=== PATIENT | female | born 1955 | race Caucasian/White ===

== ENCOUNTER → 2016-10-09 10:07 | Outpatient (CLI) | payer MEDICAID ==
[2016-08-28 12:10] VITALS: BMI 48.0
[~2016-10-09 10:07] MED LIST: ASPIRIN81 MG PO; BENICAR HCT 40-1 TAB PO; FAMOTIDINE10 MG PO; GEMFIBROZIL600 MG PO; HYDROCODON-ACE1 EAC7 PO; HYZAAR 50-12.51 TAB PO; ISOSORBIDE MONO30 M1 PO; K-DUR20 MEQ PO; KLONOPIN1 MG PO; LASIX40 MG PO; LOW DOSE ASPIRI81 M1 PO; MOBIC7.5 MG PO; OMEPRAZOLE40 MG PO; PLAVIX75 MG PO; PROZAC20 MG PO; REQUIP0.5 MG PO; VIMOVO 500-201 EACH PO; ZOFRAN ODT4 MG/UDTAB PO
== END | disposition home or self-care (01) ==
LOC: D.CT 10:07
DX: J81.1 Chronic pulmonary edema (principal)

== ENCOUNTER → 2016-10-10 16:31 | Outpatient (CLI) | payer MEDICAID ==
[2016-08-28 12:10] VITALS: BMI 48.0
== END | disposition home or self-care (01) ==
LOC: D.MAMMO 15:15
DX: Z12.31 Encounter for screening mammogram for malignant neoplasm of breast (principal)

== ENCOUNTER → 2016-12-08 13:52 | Outpatient (CLI) | payer MEDICAID ==
[2016-08-28 12:10] VITALS: BMI 48.0
== END | disposition home or self-care (01) ==
LOC: D.RAD 10-30 10:45 → D.RT 10-30 11:00 → D.RAD 12-06 10:00 → D.RT 13:52
DX: R06.09 Other forms of dyspnea (principal)

== ENCOUNTER 2017-01-09 08:26 | Outpatient (CLI) | payer MEDICAID ==
[~2017-01-09] VITALS: Ht 177.8 cm; Wt 151.4 kg
--- NOTE | ~2017-01-09 | OP ---
PATIENT NAME: RICHARD DE LEON MEDICAL RECORD: [id number] :55 LOCATION:D.[facility] ADMISSION DATE: SURGEON: DARRELL FATIMA MD DATE OF OPERATION: 01/09/2017 PROCEDURES: 1. PTCA stent LAD. 2. Left heart catheterization. 3. Selective coronary angiography. 4. Left ventriculogram. INDICATION: Angina and coronary artery disease. PROCEDURE: After informed consent was obtained and after detailed explanation of risks, benefits as well as alternative therapies, the patient elected to proceed with angiogram and angioplasty. The right femoral area was prepped and draped in normal sterile fashion. Right femoral artery was cannulated via modified Seldinger technique with placement of 6-Chinese sheath. All catheters exchanged through this sheath. FINDINGS: Left ventriculogram was performed in standard 30-degree FELICIANO view, reveals good cardiac wall motion throughout all segments. Overall ejection fraction estimated at 60%. SELECTIVE CORONARY ANGIOGRAPHY: 1. Left main showed no significant angiographic disease. 2. Left anterior descending has previously placed stents proximally. These are widely patent with no significant restenosis. There is, however 70% to 75% stenosis after this previously placed stents, this correlates with the EKG changes and new onset of chest pain. 3. Left circumflex has moderate irregularities, but no flow-limiting stenosis. 4. Right coronary has previously placed stents. These are widely patent with no significant restenosis. No disease elsewise throughout the RCA or its branches. PTCA STENT OF THE LAD: The stent used was a 3.5 x 15 mm Integrity. Result was 0% residual stenosis. OVERALL IMPRESSION: Successful percutaneous transluminal coronary angioplasty stent of the left anterior descending going from 70% to 75% initial stenosis to 0% residual. TRANSINT:[id number] Voice Confirmation ID: [id number] DOCUMENT ID: [id number] DARRELL FATIMA MD CC: [id number] DICTATION DATE: 01/09/17 1108 DISABILITY BENEFITS SPECIALIST: 01/09/17 190 [facility] CLI 01/09/17 [address] [place] [address]
--- NOTE | ~2017-01-09 | HEMODYNAMI ---
PATIENT:RICHARD DE LEON MEDICAL RECORD: [id number] : 55 LOCATION:[facility] ADMISSION DATE: 01/09/17 Generatedon:01/09/201711:08 Patient name: RICHARD DE LEON Patient #: [id number] : 1955 Date of study: 01/09/2017 Page: Of Hemodynamic Procedure Report Patient Data Patient Demographics Procedure consent was obtained First Name: RICHARD Gender: Female Last Name: MOISES : 1955 Middle Initial: CONRAD Age: 61 year(s) Patient #: [id number] Race: SSN: [id number] Additional ID: [id number] Contact details Address: [address] [place] [address] State: [place] City: [facility] Zip code: [address] Past Medical History Allergies Allergen Reaction Date Comments Reported Other allergy 08/07/2016 Atorvastatin Other allergy 01/09/2017 statins Admission Admission Data Admission Date: 01/09/2017 Admission Time: 8:26 Weight (lbs.): 343 Weight (kg.): 155.58 Lab Results Lab Result Date: 01/09/2017 Lab Result Time: 9:00 Biochemistry Name Units Result Min Max BUN mg/dl 27 --(----)-* 7 18 Creatinine mg/dl 1.4 --(----)*- 0.6 1.3 CBC Name Units Result Min Max Hematocrit % 38 *-(----)-- 42 54 Hemoglobin g/dl 13 -*(----)-- 13.5 17.5 Procedure Procedure Types Cath Procedure Diagnostic Procedure [facility] w/Coronaries PCI Procedure Coronary Stent Initial Miscellaneous Procedures Moderate Sedation up to 15 minutes Procedure Description Procedure Date Procedure Date: 01/09/2017 Procedure Start Time: 10:51 Procedure End Time: 11:04 Procedure Staff Name Function Roni Collazo MD Performing Physician Supriya Counts RT Scrub Evgeny Puente RN Nurse Speedy Gilliland RT Monitor Procedure Data Cath Procedure Fluoroscopy Diagnostic fluoroscopy Total fluoroscopy Time: 2.7 time: 2.7 min min Diagnostic fluoroscopy Total fluoroscopy dose: dose: 458.13 mGy 458.13 mGy Contrast Material Contrast Material Type Amount (ml) Isovue 300 91 Entry Location Entry Primary Successful Side Size Upsize Upsize Entry Closure Succes sful Closure Location (Fr) 1 (Fr) 2 (Fr) Remarks Device Remarks Femoral Right 5 Fr 6 Fr Exoseal artery Short Estimated blood loss: 10 ml Diagnostic catheters Device Type Used For End Catheter Placement Cordis 5Fr Pigtail Procedure Catheter (MP) Cordis 5Fr JL 4.0 Procedure Catheter (MP) Cordis 5Fr 3DRC Catheter Procedure (MP) Procedure Complications No complications Procedure Medications Medication Administration Route Dosage Oxygen NC 2 l/min Heparin Flush Bag added to field 2 bags (1000units/500ml NS) 0.9% NaCl I.V. 100 ml/hr Fentanyl I.V. 50 mcg Versed I.V. 1 mg Fentanyl I.V. 50 mcg Versed I.V. 1 mg Heparin Bolus I.V. 4000 units Fentanyl I.V. 50 mcg Hemodynamics Rest HGB: 13 (g/dl) Heart Rate: 70 (bpm) Snapshots Pre Cath Intra NCS Post Cath Vital Signs Time Heart Resp SPO2 NIBP (mmHg) Rhythm Pain Sedation Rate (ipm) (%) Status Level (bpm) 10:29:40 71 19 97 137/68(108) NSR 0 (11) 10(A) , No pain 10:34:25 69 17 95 129/64(108) NSR 0 (11) 10(A) , No pain 10:39:11 71 18 95 125/63(101) NSR 0 (11) 10(A) , No pain 10:43:54 74 20 94 145/67(99) NSR 0 (11) 10(A) , No pain 10:48:45 72 17 93 125/71(97) NSR 0 (11) 10(A) , No pain 10:53:30 73 17 95 108/60(99) NSR 0 (11) 9(A) , No pain 10:57:56 79 18 94 130/84(115) NSR 0 (11) 9(A) , No pain 11:06:10 83 18 96 142/83(108) NSR 0 (11) 9(A) , No pain Medications Time Medication Route Dose Verified Delivered Reason Notes Effectiveness by by 10:25:04 Oxygen NC 2 Evgeny Evgeny Per physician l/min Kwame Puente RN RN 10:25:14 Heparin Flush added 2 Evgeny Evgeny used for Bag to bags Kwame Puente RN procedure (1000units/500ml field RN NS) 10:25:26 0.9% NaCl I.V. 100 Evgeny Evgeny Per physician ml/hr Kwame Puente RN RN 10:49:31 Fentanyl I.V. 50 Evgeny Evgeny for sedation mcg Kwame Puente RN RN 10:49:45 Versed I.V. 1 mg Evgeny Evgeny for sedation Kwame Puente RN RN 10:52:40 Fentanyl I.V. 50 Evgeny Evgeny for sedation mcg Kwame Puente RN RN 10:52:46 Versed I.V. 1 mg Evgeny Evgeny for sedation Kwame Puente RN RN 10:57:54 Heparin Bolus I.V. 4000 Evgeny Evgeny for units Kwame Puente RN anticoagulation RN 10:58:28 Fentanyl I.V. 50 Evgeny Evgeny for sedation mcg Kwame Puente RN relay assembler Log Time Note 9:34:04 Diagnostic Cath Status : Elective 9:34:26 Plan of Care:Hemodynamics will remain stable., Cardiac rhythm will remain stable., Comfort level will be maintained., Respiratory function will remain adequate., Patient/ family verbilizes understanding of procedure., Procedure tolerated without complication., Recovers from procedure without complications.. 10:09:21 Evgeny Puente RN sent for patient. Start room use. 10:09:22 Time tracking: Regular hours 10:14:53 Patient Weight : 155.58 kg 10:16:00 Patient received from Pre/Post Procedure Room to CCL 3 Alert and oriented. Tansferred to table in Supine position. 10:16:01 Warm blankets applied, and ren hugger turned on for patient comfort. 10:16:01 Correct patient and procedure confirmed by team. 10:16:03 Signed procedure consent form obtained from patient. 10:16:04 ECG and BP/O2 sat monitors applied to patient. 10:16:15 H&P Date Dictated: 01/03/2017 Within 30 days and on chart., H&P Addendum completed by physician on day of procedure. (MUST COMPLETE FOR ALL OUTPATIENTS). 10:25:04 Oxygen 2 l/min NC was administered by Evgeny Puente RN; Per physician; 10::14 Heparin Flush Bag (1000units/500ml NS) 2 bags added to field was administered by Evgeny Puente RN; used for procedure; 10:: 0.9% NaCl 100 ml/hr I.V. was administered by Evgeny Puente RN; Per physician; 10::45 Vital chart was started 10::07 Baseline sample Acquired. 10:26:11 Rhythm: sinus rhythm 10::12 Full Disclosure recording started 10::13 Pre-procedure instructions explained to patient. 10::14 Pre-op teaching completed and patient verbalized understanding. 10::15 Family in waiting room. 10::16 Patient NPO since Midnight. 10::25 Patient allergic to Other allergystatins 10:26:27 Is the patient allergic to Iodine/contrast media? No. 10:26:36 Is patient on blood thinner?Yes 10::39 ACC The patient was administered the following blood thiners within the last 24 hours: ACCPlavix 10:26:40 Patient diabetic? No. 10:26:43 Previous problem with sedation/anesthesia? No ? 10:26:44 Snore? Yes 10:26:45 Sleep apnea? Yes 10:26:46 Deviated septum? No 10:26:47 Opens mouth fully? Yes 10:26:47 Sticks out tongue? Yes 10:26:49 Airway obstruction? No ? 10:26:53 Dentures? Yes In Tight 10:29:40 Pre procedure: right dorsailis pedis pulse 2+ Normal; easily identifiable; not easily obliterated 10:29:42 Patient pain scale 0/10 ?. 10:29:51 IV patent on arrival in left wrist with 0.9% NaCl at [facility]. 10:32:00 Lab Result : BUN 27 mg/dl 10:32:00 Lab Result : Creatinine 1.4 mg/dl 10:32:00 Lab Result : Hemoglobin 13 g/dl 10:32:00 Lab Result : Hematocrit 38 % 10:32:04 Lab results completed and on chart. 10:32:10 Right groin area was prepped with chlora-prep and draped in sterile fashion 10:32:11 Alarms reviewed by R. N. 10:32:12 Sharps counted by scrub and verified by R.N. 10:32:15 Use device set Femoral Dx 10:32:16 Tegaderm 4 x 4 opened to sterile field. 10:32:17 Acist Manifold opened to sterile field. 10:32:18 Acist Hand Control opened to sterile field. 10:32:18 Acist Syringe opened to sterile field. 10:32:19 Bag Decanter opened to sterile field. 10:32:19 Medline Cath Pack opened to sterile field. 10:32:20 Terumo 5Fr [place] Sheath opened to sterile field. 10:32:20 St Kuldip 260cm J .035 wire opened to sterile field. 10:32:21 Diagnostic Infinity 5Fr Multipack catheter opened to sterile field. 10:39:08 Merit 18G 9cm Percutaneous Entry needle opened to sterile field. 10:41:16 Zero performed for pressure channel P1 10:48:40 Physician arrived 10:48:40 --------ALL STOP TIME OUT------ 10:48:40 Final Timeout: patient, procedure, and site verified with staff and physician. All members of the team are in agreement. 10:48:42 Right groin site verified by team. 10:48:44 Physical assessment completed. ASA score P 2 - A patient with mild systemic disease as per Roni Collazo MD. 10:48:47 Sedation plan: IV Moderate Sedation Versed, Fentanyl 10:49:31 Fentanyl 50 mcg I.V. was administered by Evgeny Puente RN; for sedation; 10:49:45 Versed 1 mg I.V. was administered by Evgeny Puente RN; for sedation; 10:51:36 Procedure started. 10:51:39 Local anesthetic to right femoral artery with Lidocaine 2% by Roni Collazo MD.INITIAL ACCESS ONLY 10:52:11 A 5 Fr sheath was inserted into the Right Femoral artery 10:52:40 Fentanyl 50 mcg I.V. was administered by Evgeny Puente RN; for sedation; 10:52:45 A Cordis 5Fr Pigtail Catheter (MP) was advanced over the wire and used for Procedure. 10:52:46 Versed 1 mg I.V. was administered by Evgeny Puente RN; for sedation; 10:53:18 LV gram done using FELICIANO 10:53:23 EF : 55 % 10:53:27 Injector settings: Ml/sec: 10, Volume: 20., 10:53:30 Catheter exchanged over wire. 10:53:33 A Cordis 5Fr JL 4.0 Catheter (MP) was advanced over the wire and used for Procedure. 10:53:49 LCA angiography performed. 10:55:00 Esquivel Storm Playerisper J 300cm 0.014 guide wire opened to sterile field. 10:55:01 TerumStorm Media Innovations Inc 6Fr [place] Sheath opened to sterile field. 10:55:02 [employer] Prototype BasixCompak Inflation Kit opened to sterile field. 10:55:06 Catheter exchanged over wire. 10:55:39 A Cordis 5Fr 3DRC Catheter (MP) was advanced over the wire and used for Procedure. 10:55:56 RCA angiography performed. 10:56:11 Catheter removed. 10:56:12 Proceeding to intervention. 10:56:21 Sheath upsized to a 6 Fr Short. 10:57:47 Cordis 6FR XBLAD 3.5 guide catheter opened to sterile field. 10:57:54 Heparin Bolus 4000 units I.V. was administered by Evgeny Puente RN; for anticoagulation; 10:57:55 6 Fr xblad 3.5 guide catheter was inserted over the wire 10:58:28 Fentanyl 50 mcg I.V. was administered by Evgeny Puente RN; for sedation; 10:58:33 whisper wire advanced. 10:59:03 Wire advanced across lesion. 11:01:48 Inflation Number: 1 A Medtronic Integrity 3.5 X 15 stent was prepped and advanced across the Prox LAD. The stent was deployed at 17 TYRELL for 0:10 (min:sec). 11:01:51 Stent catheter was removed intact over wire. 11::52 Wire removed. 11::52 Guide catheter removed. 11:02:00 Cordis 6Fr Exoseal opened to sterile field. 11:02:08 Sheath removed intact; hemostasis achieved with Exoseal to the Right Femoral artery. 11:02:10 Procedure ended.(Physican Out) 11:02:20 Fluoroscopy time 02.70 minutes. ::28 Fluoroscopy dose: 458.13 mGy 11:02:28 Flurop Dose total: 458.13 11:02:32 Contrast amount:Isovue 300 91ml. 11:02:33 Sharps counted by scrub and verified by R.N. 11:02:36 Insertion/operative site no bleeding no hematoma. 11:02:40 Post-op/insertion site Right Femoral artery dressed using a 4 x 4 and Tegaderm. 11:02:43 Post right femoral artery:stable, soft, clean and dry 11:02:45 Post Procedure Pulses reassessed and unchanged 11:02:48 Post-procedure physical assessment completed. ASA score P 2 - A patient with mild systemic disease as per Roni Collazo MD. 11:02:50 Post procedure rhythm: unchanged. 11:02:52 Estimated blood loss: 10 ml 11:02:53 Post procedure instruction explained to patient.Patient verbalizes understanding. 11:02:54 Patient needs reinforcement of post procedure teaching. 11:03:50 Procedure type changed to Cath procedure, Diagnostic procedure, LHC, LHC w/Coronaries, PCI procedure, Coronary Stent Initial, Miscellaneous Procedures, Moderate Sedation up to 15 minutes 11:04:20 Procedure and supply charges have been captured, reviewed, submitted and are correct. 11:04:22 Procedure Complication : No complications 11:04:24 Vital chart was stopped 11:04:25 See physician's report for complete and final results. 11:04:26 Vital chart was started 11:04:26 Report given to Pre/Post Procedure Room. 11:04:28 Patient transfered to Pre/Post Procedure Room with Stretcher. 11:04:29 Vital chart was stopped 11:04:30 Vital chart was started 11:04:31 Procedure ended. 11:04:31 Full Disclosure recording stopped 11:07:09 End room use (Document Last) 11:08:29 Vital chart was stopped Intervention Summary Intervention Notes Time ActionType Lesion and Equipment Action# Pressure Duration Attributes Used 11:01:48 Place stent Prox LAD Medtronic 1 17 00:10 Integrity 3.5 X 15 stent Device Usage Item Name Manufacture Quantity Catalog Hospital Part Current Minimal Lot# / Number Charge Number Stock Stock Serial# Code Tegaderm 4 x 3M 1 [id number] [id number] 628292 954000 5 4 Acist Acist 1 70861 656879 914947 542459 5 Cart[facility]ia [facility] Acist Hand Acist 1 02914 787881 824574 219380 5 Control Medical Systems Inc Acist Acist 1 41802 178277 865991 549077 20 Syringe Medical Systems Inc Bag Decanter Microtek 1 2002S 3049359 16306 301446 5 Medical Inc. Medline Cath Cardinal 1 [id number] 686497 18665 444570 5 Pack Health Terumo 5Fr Terumo 1 [id number] 532339 618725 755506 [address] [place] [address] St Kuldip 1 266805 977360 822184 708373 30 260cm J .035 wire Diagnostic Cardinal 1 [id number] 664240 43155 044529 30 Infinity 5Fr Health Multipack catheter Merit 18G Merit 1 [id number] 330989 259504 347264 5 9cm Medical Percutaneous Entry needle Cordis 5Fr Cardinal 1 292120 5 Pigtail Health Catheter (MP) Cordis 5Fr Cardinal 1 868368 5 JL 4.0 Health Catheter (MP) Esquivel Esquivel 1 [id number] 725495 056301 099669 5 Whisper J Vascular 300cm 0.014 guide wire Terumo 6Fr Terumo 1 [id number] 957137 424714 242456 40 [place] Sheath Merit Merit 1 [id number] 431317 235723 908159 15 Race Yourself Medical Inflation Kit Cordis 5Fr Cardinal 1 643577 5 3DRC Health Catheter (MP) Cordis 6FR Cardinal 1 [id number] 657419 973640 848432 10 XBLAD 3.5 Health guide catheter Medtronic Medtronic 1 [id number] 474335 240222 113486 4 [id number] Integrity 3.5 X 15 stent Cordis 6Fr Cardinal 1 [id number] 577180 742756 180407 [facility] Signature Audit Gilliam Stage Time Signature Unsigned Intra-Procedure 01/09/2017 Speedy Gilliland 11:08:16 AM RT(R) Signatures Monitor : Speedy Gilliland RT Signature : Date : Time : [facility] [address] [place] [address]
[2017-01-09 08:54] VITALS: BP 128/56; Ht 177.8 cm; Wt 151.4 kg
[2017-01-09 09:10] LABS: MCH 29.9 pg (26.0-34.0); MCHC 34.2 g/dL (31.0-37.0); MCV 87.4 fL (80.0-100.0); MEAN PLATELET VOLUME 10.5 fL (7.4-10.4); NEUTROPHILS 65.2 % (40-80); PLATELET COUNT 257 10x3/uL (130-400); RBC 4.35 10x6/uL (4.00-5.40); RDW 13.5 % (11.5-14.5); WBC 8.2 10x3/uL (4.8-10.8)
[2017-01-09 09:34] LABS: ANION GAP 15.8 mmol/L (8-16); CALCIUM 9.6 mg/dL (8.5-10.1); CARBON DIOXIDE 24.5 mmol/L (21.0-32.0); CREATININE - SERUM 1.4 mg/dL (0.6-1.3); POTASSIUM - SERUM 4.3 mmol/L (3.5-5.1)
--- NOTE | 2017-01-09 11:27 | NUR ---
VSS WITH CHEST PAIN DENIED 6 FR EXOSEAL R/GROIN CDI NO BLEEDING NO HEMATOMA NOTED. PULSES PALPABLE AND MARKED. INSTRUCTED PATIENT TO KEEP HEAD FLAT ON PILLOW WITH RLE STRAIGHT
--- NOTE | 2017-01-09 11:41 | NUR ---
PATIENT NAUSEATED AND VOMITING. DR FATIMA NOTIFIED WITH 4 MG ZOFRAN GIVEN
--- NOTE | 2017-01-09 12:00 | NUR ---
6 FR EXOSEAL R/GROIN CDI NO BLEEDING NO HEMATOMA NOTED. PATIENT DENIED NAUSEA VSS
--- NOTE | 2017-01-09 12:15 | NUR ---
1215 PATIENT COMPLAINS OF PAIN TO R/GROIN AND BACK WITH DROP IN BP NOTED. DR FATIMA AT BEDSIDE. R/GROIN SOFT NO HEMATOMA NOTED.
--- NOTE | 2017-01-09 12:20 | NUR ---
1220 PATIENT STILL COMPLAINS OF PAIN TO R/GROIN WITH BP DROPPING. ISAIAH NOTIFIED AND TO BEDSIDE PRESSURE HELD WITH STAT H AND H FEMSTOP TO R/GROIN VSS STABLE
--- NOTE | 2017-01-09 13:00 | NUR ---
[address] WITH VSS PATIENT DENIED PAIN AT THIS TIME. 1400 VSS REMAIN STABLE WITH CHEST PAIN DENIED. FEMSTOP REMAINS IN PLACE WITH NO HEMATOMA NOTED.
[2017-01-09 13:08] LABS: HEMATOCRIT 34.8 % (36.0-48.0); HEMOGLOBIN 11.4 g/dL (12-16)
--- NOTE | 2017-01-09 14:42 | NUR ---
SANDWICH AND SODA TO BEDSIDE WITH CHEST PAIN DENIED. VSS FEMSTOP REMAINS TO R/GROIN CDI
--- NOTE | 2017-01-09 15:03 | NUR ---
FEMSTOP REMOVED WITH VSS NO BLEEDING NO HEMATOMA NOTED. CHEST PAIN IS DENIED. FAMILY AT SIDE
--- NOTE | 2017-01-09 15:34 | NUR ---
PIV REMOVED WITH DRESSING APPLIED. R/GROIN CDI NO BLEEDING NO HEMATOMA NOTED. VSS WITH CHEST PAIN DENIED PATIENT UP TO GET DRESSED FOR DISCHARGE
--- NOTE | 2017-01-09 15:50 | NUR ---
VERBAL AND WRITTEN DISCHARGE GONE OVER WITH PATIENT AND FAMILY LEFT VIA WC TO PARKING FOR DAUGHTER TO DRIVE HOME CHEST PAIN DENIED WITH DRESSING TO R/GROIN CDI NO BLEEDING NO HEMATOMA NOTED
== END 2017-01-09 15:52 | disposition home or self-care (01) ==
LOC: D.CATH 08:26
PROVIDERS: Internal Medicine Interventional Cardiology
DX: I25.119 Atherosclerotic heart disease of native coronary artery with unspecified angina pectoris (principal); I10 Essential (primary) hypertension; E78.5 Hyperlipidemia, unspecified

== ENCOUNTER 2017-01-15 14:04 | Emergency (ER) | payer MEDICAID ==
[2017-01-09 08:54] VITALS: BMI 47.8
[2017-01-15 16:04] LABS: BASOPHILS 0.4 % (0.0-2.0); EOSINOPHILS 5.9 % (0-7); HEMATOCRIT 34.4 % (36.0-48.0); HEMOGLOBIN 11.3 g/dL (12-16); IMMATURE GRANULOCYTES 1.4 % (0-5); LYMPHOCYTES 14.4 % (15-50); MCHC 32.8 g/dL (31.0-37.0); MCV 91.2 fL (80.0-100.0); MEAN PLATELET VOLUME 10.3 fL (7.4-10.4); MONOCYTES 11.7 % (2-11); NEUTROPHILS 66.2 % (40-80); RBC 3.77 10x6/uL (4.00-5.40); RDW 14.5 % (11.5-14.5); WBC 14.1 10x3/uL (4.8-10.8)
[2017-01-15 16:30] LABS: PLATELET COUNT 342 10x3/uL (130-400)
[2017-01-15 16:41] LABS: ALBUMIN 3.5 g/dL (3.4-5.0); ANION GAP 13.5 mmol/L (8-16); BILIRUBIN - TOTAL 0.99 mg/dL (0.2-1.3); CALCIUM 9.3 mg/dL (8.5-10.1); CARBON DIOXIDE 30.9 mmol/L (21.0-32.0); CREATININE - SERUM 1.3 mg/dL (0.6-1.3); POTASSIUM - SERUM 4.4 mmol/L (3.5-5.1)
[2017-01-15 17:54] LABS: APTT 27.6 SECONDS (22.8-39.4); INR 1.05 (0.85-1.17); PROTIME 13.5 SECONDS (11.6-15.0)
== END 2017-01-15 20:16 | disposition home or self-care (01) ==
LOC: D.ER 14:04
PROVIDERS: Emergency Medicine; Physician Assistant Medical
DX: K66.1 Hemoperitoneum (principal); L76.22 Postprocedural hemorrhage of skin and subcutaneous tissue following other procedure; K59.00 Constipation, unspecified; I10 Essential (primary) hypertension; K58.9 Irritable bowel syndrome, unspecified

== ENCOUNTER 2017-01-18 18:58 | Emergency (ER) | payer MEDICAID ==
[2017-01-09 08:54] VITALS: BMI 47.8
[2017-01-18 22:57] LABS: BASOPHILS 0.4 % (0.0-2.0); EOSINOPHILS 8.5 % (0-7); HEMATOCRIT 31.8 % (36.0-48.0); IMMATURE GRANULOCYTES 1.9 % (0-5); LYMPHOCYTES 17.3 % (15-50); MCH 29.7 pg (26.0-34.0); MCHC 31.4 g/dL (31.0-37.0); MCV 94.4 fL (80.0-100.0); MEAN PLATELET VOLUME 10.3 fL (7.4-10.4); MONOCYTES 11.5 % (2-11); NEUTROPHILS 60.4 % (40-80); PLATELET COUNT 346 10x3/uL (130-400); RBC 3.37 10x6/uL (4.00-5.40); RDW 14.5 % (11.5-14.5); WBC 9.8 10x3/uL (4.8-10.8)
[2017-01-18 23:13] LABS: APPEARANCE CLEAR (CLEAR); COLOR YELLOW (YELLOW); SPECIFIC GRAVITY 1.015 (1.005-1.020)
[2017-01-18 23:14] LABS: BILIRUBIN NEGATIVE (NEGATIVE); GLUCOSE NEGATIVE (NEGATIVE); KETONE NEGATIVE (NEGATIVE); LEUKOCYTE ESTERASE NEGATIVE (NEGATIVE); NITRITE NEGATIVE (NEGATIVE); PROTEIN NEGATIVE (NEGATIVE); UROBILINOGEN NORMAL (NORMAL)
[2017-01-18 23:17] LABS: ANION GAP 11.4 mmol/L (8-16); BILIRUBIN - TOTAL 0.75 mg/dL (0.2-1.3); C-REACTIVE PROTEIN 4.7 mg/dL (0.0-0.9); CALCIUM 8.8 mg/dL (8.5-10.1); CARBON DIOXIDE 31.8 mmol/L (21.0-32.0); CREATININE - SERUM 1.4 mg/dL (0.6-1.3); INR 0.98 (0.85-1.17); POTASSIUM - SERUM 4.2 mmol/L (3.5-5.1); PROTIME 12.8 SECONDS (11.6-15.0)
== END 2017-01-19 02:50 | disposition home or self-care (01) ==
LOC: D.ER 18:58
PROVIDERS: Nurse Practitioner Family
DX: M54.9 Dorsalgia, unspecified (principal); K66.1 Hemoperitoneum; I10 Essential (primary) hypertension; K58.9 Irritable bowel syndrome, unspecified

== ENCOUNTER → 2017-04-16 08:45 | Outpatient (CLI) | payer MEDICAID ==
[2017-01-09 08:54] VITALS: BMI 47.8
== END | disposition home or self-care (01) ==
LOC: D.RT 08:45
DX: R91.1 Solitary pulmonary nodule (principal); R94.2 Abnormal results of pulmonary function studies

== ENCOUNTER 2017-11-13 19:45 | Emergency (ER) | payer MEDICAID ==
[2017-01-09 08:54] VITALS: BMI 47.8
== END 2017-11-13 22:05 | disposition home or self-care (01) ==
LOC: D.ER 19:45
DX: S93.401A Sprain of unspecified ligament of right ankle, initial encounter (principal); X58.XXXA Exposure to other specified factors, initial encounter; Y93.89 Activity, other specified; Y92.019 Unspecified place in single-family (private) house as the place of occurrence of the external cause

== ENCOUNTER 2018-01-22 12:00 | Inpatient (IN) | payer MEDICAID ==
[~2018-01-22] VITALS: Ht 170.2 cm; Wt 104.3 kg
[2018-01-22 13:15] LABS: BASOPHILS 0.4 % (0-2); EOSINOPHILS 3.7 % (0-7); HEMATOCRIT 42.3 % (36.0-48.0); HEMOGLOBIN 14.1 g/dL (12-16); IMMATURE GRANULOCYTES 0.3 % (0-5); LYMPHOCYTES 23.9 % (15-50); MCH 28.5 pg (26.0-34.0); MCHC 33.3 g/dL (31.0-37.0); MCV 85.6 fL (80.0-100.0); MEAN PLATELET VOLUME 10.4 fL (7.4-10.4); MONOCYTES 10.7 % (2-11); RBC 4.94 10x6/uL (4.00-5.40); RDW 13.1 % (11.5-14.5)
[2018-01-22 13:16] LABS: PLATELET COUNT 250 10x3/uL (130-400)
[2018-01-22 13:30] LABS: ANION GAP 13.7 mmol/L (8-16); BILIRUBIN - TOTAL 0.39 mg/dL (0.2-1.3); CALCIUM 9.6 mg/dL (8.5-10.1); CARBON DIOXIDE 26.1 mmol/L (21.0-32.0); CREATININE - SERUM 1.3 mg/dL (0.6-1.3); POTASSIUM - SERUM 3.8 mmol/L (3.5-5.1)
[2018-01-22 17:42] LABS: CKMB 0.7 U/L (0.0-3.6); CREATINE KINASE 78 UL (21-215)
[2018-01-22 18:03] LABS: TROPONIN-I < 0.017 ng/mL (0.000-0.060)
[2018-01-22 20:14] LABS: APPEARANCE CLEAR (CLEAR); BILIRUBIN NEGATIVE (NEGATIVE); COLOR YELLOW (YELLOW); GLUCOSE NEGATIVE (NEGATIVE); KETONE NEGATIVE (NEGATIVE); NITRITE NEGATIVE (NEGATIVE); PROTEIN NEGATIVE (NEGATIVE); SPECIFIC GRAVITY 1.015 (1.005-1.020); UROBILINOGEN NORMAL (NORMAL)
[2018-01-22] MEDS ORDERED: VITAMIN D5000 UNIT PO (22:44)
[2018-01-22 23:00] VITALS: BP 124/50
[2018-01-22 23:36] LABS: CREATINE KINASE 125 UL (21-215); TROPONIN-I < 0.017 ng/mL (0.000-0.060)
[2018-01-23 02:16] VITALS: BP 124/50; BMI 36.0
[2018-01-23 04:00] VITALS: BP 120/96
[2018-01-23 05:16] LABS: BASOPHILS 0.3 % (0-2); EOSINOPHILS 4.6 % (0-7); HEMATOCRIT 39.5 % (36.0-48.0); IMMATURE GRANULOCYTES 0.3 % (0-5); LYMPHOCYTES 31.1 % (15-50); MCH 28.6 pg (26.0-34.0); MCHC 32.9 g/dL (31.0-37.0); MEAN PLATELET VOLUME 10.2 fL (7.4-10.4); MONOCYTES 13.1 % (2-11); NEUTROPHILS 50.6 % (40-80); PLATELET COUNT 235 10x3/uL (130-400); RBC 4.54 10x6/uL (4.00-5.40); WBC 7.8 10x3/uL (4.8-10.8)
[2018-01-23 05:48] LABS: CALC OSMOLALITY 282 mosm/kg (275-300); CALCIUM 9.1 mg/dL (8.5-10.1); CARBON DIOXIDE 28.2 mmol/L (21.0-32.0); CHLORIDE - SERUM 105 mmol/L (98-107); CREATINE KINASE 123 UL (21-215); CREATININE - SERUM 1.2 mg/dL (0.6-1.3); GLUCOSE 125 mg/dL (74-106); MAGNESIUM - SERUM 1.8 mg/dL (1.8-2.4); POTASSIUM - SERUM 3.7 mmol/L (3.5-5.1); SODIUM 140 mmol/L (136-145); TROPONIN-I < 0.017 ng/mL (0.000-0.060); UREA NITROGEN 20 mg/dL (7-18); eGFR NON AFRICAN AMERICAN 48 mL/min (90-120)
[2018-01-23 08:00] VITALS: BP 119/47
[2018-01-23 11:39] VITALS: BP 122/51
[2018-01-23 15:52] VITALS: BP 105/34
[2018-01-23 15:58] VITALS: Ht 170.2 cm; Wt 104.3 kg
[2018-01-23 20:58] VITALS: BP 147/64
[2018-01-24 05:58] VITALS: BP 149/40
[2018-01-24 06:23] LABS: BASOPHILS 0.4 % (0-2); EOSINOPHILS 4.7 % (0-7); HEMATOCRIT 37.1 % (36.0-48.0); HEMOGLOBIN 12.2 g/dL (12-16); IMMATURE GRANULOCYTES 0.5 % (0-5); LYMPHOCYTES 30.1 % (15-50); MCH 28.4 pg (26.0-34.0); MCHC 32.9 g/dL (31.0-37.0); MCV 86.3 fL (80.0-100.0); MEAN PLATELET VOLUME 10.6 fL (7.4-10.4); MONOCYTES 12.3 % (2-11); PLATELET COUNT 223 10x3/uL (130-400); RDW 13.2 % (11.5-14.5); WBC 8.4 10x3/uL (4.8-10.8)
[2018-01-24 06:28] LABS: ANION GAP 9.1 mmol/L (8-16); CALCIUM 8.8 mg/dL (8.5-10.1); CARBON DIOXIDE 28.3 mmol/L (21.0-32.0); CREATININE - SERUM 1.1 mg/dL (0.6-1.3); POTASSIUM - SERUM 3.4 mmol/L (3.5-5.1)
[2018-01-24 07:49] VITALS: BP 145/66
[2018-01-24 10:57] VITALS: BP 149/67
[2018-01-24 15:11] VITALS: BP 152/76
[2018-01-24 21:42] VITALS: BP 113/49
[2018-01-25 02:01] VITALS: BP 135/60
[2018-01-25 07:40] VITALS: BP 109/69
[2018-01-25 11:52] VITALS: BP 137/35
== END 2018-01-25 12:49 | disposition home or self-care (01) | DRG 312 ==
LOC: D.ER 12:00 → D.EDHOLD 17:05 → D.M2 17:05 → OBSVTIME 17:06 → D.M2 20:12
PROVIDERS: Family Medicine; Internal Medicine Nephrology; Physician Assistant
DX: I95.2 Hypotension due to drugs (principal); N17.9 Acute kidney failure, unspecified; T50.995A Adverse effect of other drugs, medicaments and biological substances, initial encounter; W19.XXXA Unspecified fall, initial encounter; S20.02XA Contusion of left breast, initial encounter; E78.5 Hyperlipidemia, unspecified; I25.10 Atherosclerotic heart disease of native coronary artery without angina pectoris; Z95.5 Presence of coronary angioplasty implant and graft; F41.9 Anxiety disorder, unspecified; F32.9 Major depressive disorder, single episode, unspecified; R00.1 Bradycardia, unspecified; G47.33 Obstructive sleep apnea (adult) (pediatric); I10 Essential (primary) hypertension; E66.01 Morbid (severe) obesity due to excess calories; Z68.36 Body mass index [BMI] 36.0-36.9, adult

== ENCOUNTER → 2018-03-06 09:58 | Outpatient (CLI) | payer MEDICAID ==
[2018-01-23 15:58] VITALS: BMI 36.0
[~2018-03-06 09:58] MED LIST changes: +NORVASC5 MG PO; +VITAMIN D5000 UNIT PO
== END | disposition home or self-care (01) ==
LOC: D.CT 09:58
DX: R10.9 Unspecified abdominal pain (principal)

== ENCOUNTER 2018-04-07 18:56 | Emergency (ER) | payer MEDICAID ==
[~2018-04-07] VITALS: Ht 170.2 cm; Wt 151.4 kg
[~2018-04-07 18:56] MED LIST changes: -NORVASC5 MG PO
[2018-04-07 18:58] VITALS: Ht 170.2 cm; Wt 151.4 kg
[2018-04-07] MEDS ORDERED: NORVASC5 MG PO (21:31)
[2018-04-07 22:06] VITALS: BP 166/54
== END 2018-04-07 22:32 | disposition home or self-care (01) ==
LOC: D.ER 18:56
DX: M25.562 Pain in left knee (principal); M25.561 Pain in right knee; Z91.81 History of falling; I10 Essential (primary) hypertension; S99.911A Unspecified injury of right ankle, initial encounter; X58.XXXA Exposure to other specified factors, initial encounter; Y93.89 Activity, other specified; Y92.019 Unspecified place in single-family (private) house as the place of occurrence of the external cause; F17.200 Nicotine dependence, unspecified, uncomplicated

== ENCOUNTER 2019-08-21 10:00 | Observation (INO) | payer MEDICAID ==
[~2019-08-21] VITALS: Ht 170.2 cm; Wt 138.8 kg
[2019-08-21] VITALS (11 sets, daily range): BP systolic 102–151; BP diastolic 37–71; BMI 48.0
--- NOTE | ~2019-08-21 | HEMODYNAMI ---
PATIENT:RICHARD DE LEON MEDICAL RECORD: [id number] : 55 LOCATION:[facility] D.2122 [facility]# [id number] ADMISSION DATE: 08/21/19 Generatedon:08/22/201912:31 Patient name: RICHARD DE LEON Patient #: [id number] : 1955 Date of study: 08/22/2019 Page: Of Hemodynamic Procedure Report Patient Data Patient Demographics Procedure consent was obtained First Name: RICHARD Gender: Female Last Name: MOISES : 1955 Middle Initial: CONRAD Age: 63 year(s) Patient #: [id number] Race: SSN: [id number] Additional ID: [id number] Contact details Address: [address] [place] [address] State: [place] City: [facility] Zip code: [address] Past Medical History Allergies Allergen Reaction Date Comments Reported Other allergy 08/07/2016 Atorvastatin Other allergy 01/09/2017 statins Other allergy 08/22/2019 [id number] REDUCTASE INHIBITOR Admission Admission Data Admission Date: 08/21/2019 Admission Time: 15:25 Arrival Date: 08/22/2019 Arrival Time: 15:25 Admit Source: Other Insurance Payor: Private Room #: D.2122 health insurance [facility] #: [id number] Height (in.): 66.93 BSA: 2.43 (m2) Height (cm.): 170 BMI: 48.44 (kg/m2) Weight (lbs.): 308.65 Weight (kg.): 140 Lab Results Lab Result Date: 08/22/2019 Lab Result Time: 0:00 Biochemistry Name Units Result Min Max BUN mg/dl 17 --(---*)-- 7 18 Creatinine mg/dl 1.2 --(---*)-- 0.6 1.3 eGFR ml/min 48 *-(----)-- 90 120 NONAFRICAN CBC Name Units Result Min Max Hemoglobin g/dl 13.8 --(*---)-- 13.5 17.5 Procedure Procedure Types Cath Procedure Diagnostic Procedure C [facility] w/Coronaries Sedation Charges Moderate Sedation up to 15 minutes Procedure Description Procedure Date Procedure Date: 08/22/2019 Procedure Start Time: 12:20 Procedure End Time: 12:28 Procedure Staff Name Function Nitin Holt MD Performing Physician Dulce Fuentes RT Monitor Selena Tsang RT Scrub Nando Arnett RN Nurse Procedure Data Cath Procedure Fluoroscopy Diagnostic fluoroscopy Total fluoroscopy Time: 1.3 time: 1.3 min min Diagnostic fluoroscopy Total fluoroscopy dose: 543 dose: 543 mGy mGy Contrast Material Contrast Material Type Amount (ml) Isovue 300 46 Entry Location Entry Primary Successful Side Size Upsize Upsize Entry Closure Succes sful Closure Location (Fr) 1 (Fr) 2 (Fr) Remarks Device Remarks Femoral Right 5 Fr Exoseal artery Estimated blood loss: 10 ml Diagnostic catheters Device Type Used For End Catheter Placement MULTIPACK JL 4.0 5Fr Procedure catheter MULTIPACK 3DRC 5Fr Procedure catheter MULTIPACK Pigtail 5 Fr Procedure catheter Procedure Complications No complications Procedure Medications Medication Administration Route Dosage Oxygen 2 l/min Heparin Flush Bag added to field 2 bags (1000units/500ml NS) 0.9% NaCl I.V. 100 ml/hr Versed I.V. 2 mg Fentanyl I.V. 100 mcg Vasotec 2.5 mg Versed I.V. 1 mg Fentanyl I.V. 50 mcg Hemodynamics Rest BSA: 2.43 (m2) HGB: 13.8 (g/dl) O2 Consumption: Estimated: 219.67 (ml/min) O2 Co nsumption indexed: Estimated:90.4 (ml/min/m) Heart Rate: 61 (bpm) Pressure Samples Time Site Value (mmHg) Purpose Heart Use Rate(bpm) 12:23 LV 212/38,44 Snapshot 77 Gradients Valve Time Site Site Mean SEP/DFP Peak To Heart Use 1 2 (mmHg) (sec/min) Peak Rate (mmHg) (bpm) Aortic 12:24 LV AO 55 Snapshots Pre Cath Intra NCS Post Cath Vital Signs Time Heart Resp SPO2 etCO2 NIBP (mmHg) Rhythm Pain Sedation Rate (ipm) (%) (mmHg) Status Level (bpm) 12:14:59 60 44 100 0 182/74(140) NSR 0 (11) 10(A) , No pain 12:19:44 72 10 96 0 174/66(112) NSR 0 (11) 10(A) , No pain 12:25:32 79 15 98 0 183/83(124) NSR 0 (11) 9(A) , No pain 12:29:54 75 25 98 0 178/70(131) NSR 0 (11) 10(A) , No pain Medications Time Medication Route Dose Verified Delivered Reason Notes Ef fectiveness by by 12:12:41 Oxygen NC- 2 Nitin Collier used for simple l/min St Santo Arnett RN procedure mask 12:13:00 Heparin Flush added 2 Nitin Taveras used for Bag to bags YanetSanto Holt procedure (1000units/500ml field MD RODRIGUEZ NS) 12:13:08 0.9% NaCl I.V. 100 Nitin Collier Per ml/hr St Santo Arnett RN physician 12:17:42 Versed I.V. 2 mg Nitin Collier for sedation St Santo Arnett RN, MD 12:17:45 Fentanyl I.V. 100 Nitin Collier for sedation mcg [facility] Santo Arnett RN, MD 12:21:09 Vasotec SIVP 2.5 Nitin Collier for mg St Santo Arnett RN hypertension 12:24:51 Versed I.V. 1 mg Nitin Collier for sedation St Santo Arnett RN, MD 12:24:55 Fentanyl I.V. 50 Nitin Collier for sedation mcg St Santo Arnett RN, MD Procedure Log Time Note 11:46:21 Diagnostic Cath Status : Elective 11:46:45 Informed consent obtained and on chart 11:48:40 Admit Source: Other 11:48:42 Arrival Date: 08/22/2019 3:25:00 PM 11:49:10 Insurance Payor : Private health insurance 11:49:17 Patient Weight : 308.65 lbs 11:49:22 Patient Height : 66.93 inches 11:54:33 Lab Result : eGFR NONAFRICAN 48 ml/min 11:54:33 Lab Result : Hemoglobin 13.8 g/dl 11:54:33 Lab Result : BUN 17 mg/dl 11:54:33 Lab Result : Creatinine 1.2 mg/dl 12:12:06 Vital chart was started 12:12:41 Oxygen 2 l/min NC- simple mask was administered by Nando Arnett RN; used for procedure; Verbal order read back and verified. 12:13:00 Heparin Flush Bag (1000units/500ml NS) 2 bags added to field was administered by Nitin Holt MD; used for procedure; Verbal order read back and verified. 12:13:08 0.9% NaCl 100 ml/hr I.V. was administered by Nando Arnett RN; Per physician; Verbal order read back and verified. 12:13:30 3a) 45-59 Moderately reduced kidney function. 12:14:02 Maximum allowable contrast dose (3.7 X eGFR X 0.75)136 ml. 12:14:18 ACC Patient presents with Stable Angina CCS Anginal Class 3--Marked limitation of physical activity, angina occurs with ordinary activity.. 12:14:22 Procedure Status Urgent Heart Cath (IP). 12:14:25 Nando Arnett RN sent for patient. Start room use. 12:14:26 Time tracking: Regular hours (M-F 7:00 - 5:00) 12:14:33 Plan of Care:Hemodynamics will remain stable., Cardiac rhythm will remain stable., Comfort level will be maintained., Respiratory function will remain adequate., Patient/ family verbilizes understanding of procedure., Procedure tolerated without complication., Recovers from procedure without complications.. 12:14:38 Patient received from Pre/Post Procedure Room to [facility] 2 Alert and oriented. Tansferred to table in Supine position. 12:14:40 Warm blankets applied, and ren hugger turned on for patient comfort. 12:14:41 Correct patient and procedure confirmed by team. 12:14:42 ECG and BP/O2 sat monitors applied to patient. 12:14:43 Baseline sample Acquired. 12:14:48 Rhythm: sinus rhythm 12:14:50 Full Disclosure recording started 12:15:02 H&P Date Dictated: 08/21/2019 Within 30 days and on chart., H&P Addendum completed by physician on day of procedure. (MUST COMPLETE FOR ALL OUTPATIENTS). 12:15:03 Pre-procedure instructions explained to patient. 12:15:05 Family in waiting room. 12:15:08 Patient NPO since Midnight. 12:15:47 Patient allergic to Other [id number] REDUCTASE INHIBITOR 12:15:52 Is the patient allergic to Iodine/contrast media? No. 12:15:54 Was the patient premedicated? Yes 12:15:56 Is patient on blood thinner?No 12:15:59 ACC The patient was administered the following blood thiners within the last 24 hours: ACCAspirin 12:16:03 Patient diabetic? No. 12:16:07 Snore? Yes 12:16:10 Sleep apnea? Yes 12:16:19 Dentures? Yes OUT 12:16:25 Patient pain scale 0/10 ?. 12:16:32 IV patent on arrival in left forearm with 0.9% NaCl at [facility]. 12:16:36 Lab results completed and on chart. 12:17:18 Stress Test: no; N/A ? 12:17:22 Right groin area was prepped with chlora-prep and draped in sterile fashion 12:17:23 Alarms reviewed by R. N. 12:17:24 Sharps counted by scrub and verified by R.N. 12:17:25 Physician arrived 12:17:26 --------ALL STOP TIME OUT------ 12:17:26 Final Timeout: patient, procedure, and site verified with staff and physician. All members of the team are in agreement. 12:17:30 Right groin site verified by team. 12:17:34 Fire Safety Assessment: A--An alcohol-based skin anteseptic being used preoperatively., C--Open oxygen or nitrous oxide is being used., D--An ESU, laser, or fiber-optic light is being used. 12:17:42 Versed 2 mg I.V. was administered by Nando Arnett RN; for sedation; Verbal order read back and verified. 12:17:42 Physical assessment completed. ASA score P 4 - A patient with severe systemic disease that is a constant threat to life as per Nitin Holt MD. 12:17:45 Fentanyl 100 mcg I.V. was administered by Nando Arnett RN; for sedation; Verbal order read back and verified. 12:17:46 Sedation plan: IV Moderate Sedation Medication:Versed, Fentanyl 12:17:50 Use device set Femoral Dx 12:17:53 Procedure started. 12:20:31 Local anesthetic to right femoral artery with Lidocaine 2% by Nitin Holt MD.INITIAL ACCESS ONLY 12:20:39 A 5 Fr sheath was inserted into the Right Femoral artery 12:20:47 ACIST Syringe (97595) opened to sterile field. 12:20:48 Bag Decanter (2002S) opened to sterile field. 12:20:48 Medline Cath Pack ([id number]) opened to sterile field. 12:20:55 A MULTIPACK JL 4.0 5Fr catheter was advanced over the wire and used for Procedure. 12:20:57 LCA angiography performed. 12:20:59 Catheter removed. 12:21:00 ACIST Hand Control (04732) opened to sterile field. 12:21:01 ACIST Manifold (96298) opened to sterile field. 12:21:02 DIAGNOSTIC Multipack 5Fr catheter set (EQ6635) opened to sterile field. 12:21:03 Tegaderm 4 x 4 (1626W) opened to sterile field. 12:21:05 SHEATH 5FR [place] (VJW655) opened to sterile field. 12:21:06 EMERALD Guide Wire (132-877) opened to sterile field. 12:21:09 Vasotec 2.5 mg SIVP was administered by Nando Arnett RN; for hypertension; Verbal order read back and verified. 12:21:12 A MULTIPACK 3DRC 5Fr catheter was advanced over the wire and used for Procedure. 12:21:29 RCA angiography performed. 12:22:47 Catheter removed. 12:22:54 A MULTIPACK Pigtail 5 Fr catheter was advanced over the wire and used for Procedure. 12:23:56 EF : 50 % 12:23:57 Catheter removed. 12:23:59 EXOSEAL 5Fr (EX500) opened to sterile field. 12:24:51 Versed 1 mg I.V. was administered by Nando Arnett RN; for sedation; Verbal order read back and verified. 12:24:55 Fentanyl 50 mcg I.V. was administered by Nando Arnett RN; for sedation; Verbal order read back and verified. 12:26:09 Sheath removed intact; hemostasis achieved with Exoseal to the Right Femoral artery. 12:26:11 Procedure ended.(Physican Out) 12::34 Fluoroscopy time 01.30 minutes. 12::38 Flurop Dose total: 543 12::38 Fluoroscopy dose: 543 mGy 12:26:43 Dose Area Product 76769 mGy/cm. 12:26:51 Contrast amount:Isovue 300 46ml. 12:26:53 Maximum allowable dose exceeded? No. 12::54 Sharps counted by scrub and verified by R.N. 12:26:55 Insertion/operative site no bleeding no hematoma. 12:26:59 Post-op/insertion site Right Femoral artery dressed using a 4 x 4 and Tegaderm. 12:27:01 Post Procedure Pulses reassessed and unchanged 12:27:07 Post-procedure physical assessment completed. ASA score P 2 - A patient with mild systemic disease as per Nitin Holt MD. 12:27:10 Post procedure rhythm: unchanged. 12:27:13 Estimated blood loss: 10 ml 12:27:16 Post procedure instruction explained to patient.Patient verbalizes understanding. 12:27:35 Procedure type changed to Cath procedure, Diagnostic procedure, LHC, [facility] w/Coronaries, Sedation Charges, Moderate Sedation up to 15 minutes 12:27:36 Procedure and supply charges have been captured, reviewed, submitted and are correct. 12:28:02 Procedure Complication : No complications 12:28:05 Vital chart was stopped 12:28:08 [facility] Findings: mild to moderate CAD (<70%) 12:28:13 Operative report dictated upon procedure completion. 12:28:14 See physician's report for complete and final results. 12:28:16 Report given to [facility]. 12:28:21 Patient transfered to [facility] with Bed. 12:28:22 Procedure ended. 12:28:22 Full Disclosure recording stopped 12:28:29 End room use (Document Last) 12:28:53 End room use (Document Last) Device Usage Item Name Manufacture Quantity Catalog Hospital Part Current Minimal L ot# / Number Charge Number Stock Stock Serial# Code ACIST Acist 1 85049 [id number] 239513 977272 20 Syringe Medical (63736) Systems Inc Bag Microtek 1 223676 29993 234893 5 Decanter Medical Inc. () Medline Medline 1 [id number] 104204 15784 985644 5 Cath Pack ([id number]) MULTIPACK Cardinal 1 579231 5 JL 4.0 5Fr Health catheter ACIST Hand Acist 1 22497 425677 266806 673066 5 Control Medical (79404) Systems Inc ACIST Acist 1 30130 683473 689844 938367 5 Manifold Medical (13933) Systems Inc DIAGNOSTIC Cardinal 1 BD6067 880113 34761 910290 30 Multipack Health 5Fr catheter set (JL9763) Tegaderm 4 3M 1 1626W 598863 486707 664259 5 x 4 (1626W) SHEATH 5FR Terumo 1 UAH258 109529 777222 783985 5 [place] (UIC936) EMERALD Cardinal 1 502455 406794 722513 073879 5 Guide Wire Health (502455) MULTIPACK Cardinal 1 777427 5 3DRC 5Fr Health catheter MULTIPACK Cardinal 1 965930 5 Pigtail 5 Health Fr catheter EXOSEAL 5Fr Cardinal 1 EX500 140630 660766 872942 10 (EX500) Health Signature Audit [place] Stage Time Signature Unsigned Intra-Procedure 08/22/2019 Selena Tsang 12:28:53 PM RT(R) Intra-Procedure 08/22/2019 Nando Arnett RN 12:29:37 PM Intra-Procedure 08/22/2019 Nitin Rollins 12:31:18 PM Santo RODRIGUEZ Signatures Performing Physician : Signature : Nitin Holt MD Date : Time : Monitor : Dulce Fuentes RT Signature : Date : Time : Nurse : Nando Arnett RN Signature : Date : Time : [facility] [address] [place] [address]
[~2019-08-21 10:00] MED LIST changes: +NORVASC5 MG PO
[2019-08-21 10:20] LABS: BASOPHILS 0.7 % (0-2); EOSINOPHILS 4.9 % (0-7); HEMATOCRIT 41.7 % (36.0-48.0); HEMOGLOBIN 13.8 g/dL (12-16); IMMATURE GRANULOCYTES 0.1 % (0-5); LYMPHOCYTES 36.9 % (15-50); MCH 29.2 pg (26.0-34.0); MCHC 33.1 g/dL (31.0-37.0); MCV 88.2 fL (80.0-100.0); MEAN PLATELET VOLUME 10.4 fL (7.4-10.4); MONOCYTES 10.6 % (2-11); NEUTROPHILS 46.8 % (40-80); PLATELET COUNT 255 10x3/uL (130-400); RBC 4.73 10x6/uL (4.00-5.40); RDW 12.9 % (11.5-14.5); WBC 6.8 10x3/uL (4.8-10.8)
--- NOTE | 2019-08-21 10:25 | NUR ---
NO CHANGE IN CHEST PRESSURE AFTER ONE NITRO, SYS DROPPED SIGNIFICANTLY, WILL HOLD FURTHER DOSES, ER PROVIDER NOTIFIED.
[2019-08-21 10:27] LABS: APTT 24.9 SECONDS (22.8-39.4); CALC OSMOLALITY 281 mosm/kg (275-300); CALCIUM 9.4 mg/dL (8.5-10.1); CARBON DIOXIDE 26.3 mmol/L (21.0-32.0); CHLORIDE - SERUM 106 mmol/L (98-107); CREATININE - SERUM 1.2 mg/dL (0.6-1.3); GLUCOSE 120 mg/dL (74-106); INR 1.04 (0.85-1.17); POTASSIUM - SERUM 3.9 mmol/L (3.5-5.1); PROTIME 13.1 SECONDS (11.6-15.0); SODIUM 140 mmol/L (136-145); UREA NITROGEN 17 mg/dL (7-18); eGFR NON AFRICAN AMERICAN 48 mL/min (90-120)
--- NOTE | 2019-08-21 10:41 | NUR ---
NO CHANGE IN CHEST PRESSURE AFTER SECOND DOSE OF NITRO, PT NOW C/O SHARP PAIN IN THE UPPER LEFT CHEST NEAR THE SHOULER, BP 116/47, ER PROVIDER NOTIFIED.
[2019-08-21 10:43] LABS: ALBUMIN 3.1 g/dL (3.4-5.0); ALKALINE PHOSPHATASE 55 U/L (46-116); ALT (SGPT) 27 U/L (10-68); BILIRUBIN - TOTAL 0.54 mg/dL (0.2-1.3); CREATINE KINASE 134 UL (21-215); MAGNESIUM - SERUM 1.7 mg/dL (1.8-2.4); TROPONIN-I < 0.017 ng/mL (0.000-0.060)
--- NOTE | 2019-08-21 13:05 | NUR ---
PT REPORTS THAT SHE HAD SHORT TERM RELIEF OF PAIN AFTER ADMINISTRATION OF MORPHINE, BUT AT TIME OF REASSESSMENT THE PAIN HAS RETURNED WORSE THAN BEFORE, RATED 9/10.
--- NOTE | 2019-08-21 15:20 | NUR ---
PT WAS GIVEN AN AHA LUNCH TRAY
[2019-08-21 17:08] LABS: CHOL - HDL RATIO 3.1 ratio (2.3-4.1); LDL-HDL RATIO 1.4 ratio (1.5-3.5)
--- NOTE | 2019-08-21 17:39 | NUR ---
RECIEVED PT FROM ER. ALERT AND ORIENTED. TELEMERTY SHOWS SR. V/S STABLE. DENIES ANY PAIN AT PRESENT TIME. SR UP WITH CALL LIGHT IN REACH
--- NOTE | 2019-08-21 19:55 | NUR ---
RECIEVED LAYING IN BED WITH SPOUSE AT BEDSIDE. ALERT AND ORIETNED X4. UP AD SREEKANTH. IV TO LEFT FA SL.. TELEMETRY IN PLACE. SPOKE WITH HER ABOUT NPO AT [place] AND PROCEDURE IN AM. GAVE VERBAL UNDERSTANDING. DENIES ANY NEEDS AT THIS TIME.
[2019-08-22] VITALS: BP 151/48
[2019-08-22 04:00] VITALS: BP 120/47
[2019-08-22 05:34] LABS: BASOPHILS 0.5 % (0-2); EOSINOPHILS 5.4 % (0-7); HEMATOCRIT 40.1 % (36.0-48.0); HEMOGLOBIN 13.1 g/dL (12-16); IMMATURE GRANULOCYTES 0.3 % (0-5); MCH 28.8 pg (26.0-34.0); MCHC 32.7 g/dL (31.0-37.0); MCV 88.1 fL (80.0-100.0); MEAN PLATELET VOLUME 10.7 fL (7.4-10.4); MONOCYTES 11.7 % (2-11); NEUTROPHILS 40.1 % (40-80); PLATELET COUNT 230 10x3/uL (130-400); RBC 4.55 10x6/uL (4.00-5.40); RDW 12.9 % (11.5-14.5); WBC 6.3 10x3/uL (4.8-10.8)
[2019-08-22 06:09] LABS: ANION GAP 13.2 mmol/L (8-16); CALCIUM 8.9 mg/dL (8.5-10.1); CARBON DIOXIDE 24.8 mmol/L (21.0-32.0); CREATININE - SERUM 1.1 mg/dL (0.6-1.3); MAGNESIUM - SERUM 1.9 mg/dL (1.8-2.4); PHOSPHOROUS 4.2 mg/dL (2.5-4.9)
--- NOTE | 2019-08-22 07:38 | NUR ---
ALERT AND ORIENTED. NPO FOR CATH. TELEMERTY SHOWS SB 57. UP AB SREEKANTH, SR UP WITH CALL LIGHT IN REACH. WILL MONITOR
[2019-08-22 08:00] VITALS: BP 149/42
[2019-08-22 12:00] VITALS: BP 118/34
--- NOTE | 2019-08-22 12:15 | NUR ---
BACK FROM TIME MOTION ANALYST. RIGHT GROIN SOFT WITH DRSG DRY AND INTACT. PPP. V/S STABLE. TELEMERTY SHOWS SB. SLEEPING BUT AROUSES TO VOICE. FAMILY AT BEDSIDE.
--- NOTE | 2019-08-22 13:38 | NUR ---
I have reviewed this patient and I concur with the Shift Assessment completed by the Licensed Practical Nurse today this shift.
[2019-08-22 13:47] VITALS: Ht 170.2 cm; Wt 138.8 kg
--- NOTE | 2019-08-22 16:20 | NUR ---
PT DISCHARGED. IV DCD WITH TIP INTACT. RIGHT GROIN WITH DRSG DRY AND INTACT. NO SWELLING OR BLEEDING. TO PRIVATE CAR PER WHEELCHAIR
[2019-08-22 16:47] VITALS: BP 166/74
--- NOTE | 2019-08-22 17:17 | MORECARE ---
CASE MANAGEMENT DISCHARGE SUMMARY PATIENT: RICHARD DE LEON UNIT: [id number] ADM DATE: 08/21/19 AGE: 63 : 55 SEX: F ROOM/BED: D.2121 AUTHOR: ELENI LINDSAY PHYSICIAN: REFERRING PHYSICIAN: ДМИТРИЙ SALAZAR MD DATE OF SERVICE: 08/22/19 Discharge Plan Patient Name: RICHARD DE LEON [facility] [facility] 1955 Planned Disposition: Home Anticipated Discharge Date: 08/22/19 Discharge Date: Expected LOS: 1 Initial Reviewer: [email or web address] Initial Review Date: 08/22/2019 Generated: 08/22/19 6:17 pm Patient Name: RICHARD DE LEON Page 93100 at 1717 All edits/amendments must be made on the electronic document DICTATION DATE: 08/22/191715 UNDERGROUND CONDUIT INSTALLER: DORITA 08/22/191715 RPT#: [id number] DC DATE: STATUS: ADM IN [facility] [address] [place] [address] END OF REPORT
--- NOTE | 2019-08-26 08:48 | OP ---
PATIENT NAME: RICHARD DE LEON MEDICAL RECORD: [id number] :55 LOCATION:D.M2 D.2122 ADMISSION DATE:08/21/19 SURGEON: ERIC ALVA MD DATE OF OPERATION: 08/22/2019 PROCEDURE: Left heart catheterization, selective coronary angiography, right femoral artery approach. CATHETERS: A 5-Comoran sheath, 5/4 left and right Tony, 5/4 pig. The procedure was well tolerated. The patient was returned to [place]. Sheath was removed. ExoSeal device was placed. FINDINGS: Left ventriculography in 30-degree FELICIANO view: Normal wall motion. Normal systolic function. CORONARY ANATOMY: LEFT MAIN: Left main is free of disease. LAD: An area of previous stenting is widely patent. No progression of [place] disease. No evidence of restenosis. CIRCUMFLEX: Free of disease. RIGHT CORONARY ARTERY: Area of previous stenting is widely patent. No progression of [place] disease. No evidence of restenosis. IMPRESSION: No evidence of restenosis. No progression of [place] paul disease. LV function remains normal. TRANSINT:[id number] Voice Confirmation ID: [id number] DOCUMENT ID: [id number] ERIC ALVA MD at 0848 CC: [id number] DICTATION DATE: 08/22/19 1236 CORRECTIONS CORPORAL: 08/22/19 1302 DIS IN 08/22/19 [facility] [address] [place] [address]
--- NOTE | 2019-08-26 08:48 | EC ---
PATIENT:RICHARD DE LEON DATE OF SERVICE: 08/21/19 SEX: F MEDICAL RECORD: [id number] DATE OF : 55 LOCATION:D.M2 D.212 AGE OF PATIENT: 63 ADMISSION DATE: 08/21/19 REFERRING PHYSICIAN: INTERPRETING PHYSICIAN: ERIC ALVA MD ECHOCARDIOGRAM REPORT ECHO CHARGES 4 ECHO COMPLETE Date: 08/22/19 CLINICAL DIAGNOSIS: CP ECHOCARDIOGRAPHIC MEASUREMENTS (adult normal given) AC root (d.<3.7cm) 3.0 cm LV Septum d (<1.2 cm> 1.6 cm Valve Excursion 1.8 cm LV Septum (systole) 2.1 cm Left Atria (s.<4.0cm> 3.7 cm LVPW d(<1.2cm) 1.6 cm RV (d.<2.3cm) 2.7 cm LVPW (sytole) 2.1 cm LV diastole(<5.6CM) 5.0 cm MV E-F(>70mm/sec) cm LV systole 3.1 cm LVOT Diameter 2.1 cm MV exc.(>10mm) cm Est.ejection fraction (50-75%) % DOPPLER: LVIT cm/sec A 73.0 cm/sec E 122 cm/sec LA cm/sec RVSP 17.2 mmHg LVOT 143 cm/sec AOP1/2T m/s Asc. Ao 166 cm/sec RVOT 65.0 cm/sec RA cm/sec PA 94.0 cm/sec AV Gradient Peak 11.1 mmHg AV Mean 5.3 mmHg AV Area 2.7 cm MV Gradient Peak 4.2 mmHg MV Mean 2.0 mmHg MV Area cm COMMENTS: Ham Sawyer: 1 KELVIN BARCLAYOE Church Supervisor: 3 Dr. Torres TAPE# PACS Pericardial Effusion N DATE OF SERVICE: Adequate 2D, color flow imaging, spectral Doppler, and M-Mode LVH is present. LV internal dimensions are normal. Wall motion is normal. EF is greater than or equal to 55%. Aortic valve is tricuspid. No evidence of stenosis by Doppler interrogation. Left atrium normal at 3.7 cm. Mitral valve shows no prolapse. Trace MR. Right-sided chambers grossly normal. Trace TR. TRANSINT:[id number] Voice Confirmation ID: [id number] DOCUMENT ID: [id number] ECHOCARDIOGRAM REPORT [id number] RICHARD DE LEON GREGORY A MD at 0848 CC: [id number] DICTATION DATE: 08/23/19 1018 SENIOR AUDIT MANAGER: 08/23/19 1059 DIS IN 08/22/19 [facility] [address] [place] [id number]
== END 2019-08-22 16:30 | disposition home or self-care (01) ==
LOC: D.ER 10:00 → D.M2 15:25 → OBSVTIME 15:46 → D.M2 08-22 16:30
PROVIDERS: Emergency Medicine; Internal Medicine Cardiovascular Disease; ADMIT Family Medicine; ATTEND Family Medicine
DX: I25.110 Atherosclerotic heart disease of native coronary artery with unstable angina pectoris (principal); I10 Essential (primary) hypertension; E78.5 Hyperlipidemia, unspecified; Z87.891 Personal history of nicotine dependence; G47.33 Obstructive sleep apnea (adult) (pediatric); I65.21 Occlusion and stenosis of right carotid artery

== ENCOUNTER → 2019-09-29 12:36 | Outpatient (CLI) | payer MEDICAID ==
[2019-08-22 13:47] VITALS: BMI 47.9
== END | disposition home or self-care (01) ==
LOC: D.CT 12:36
PROVIDERS: ATTEND Internal Medicine Interventional Cardiology
DX: I25.10 Atherosclerotic heart disease of native coronary artery without angina pectoris (principal); I73.9 Peripheral vascular disease, unspecified

== ENCOUNTER → 2019-12-09 08:59 | Outpatient (CLI) | payer MEDICAID ==
[2019-08-22 13:47] VITALS: BMI 47.9
== END | disposition home or self-care (01) ==
LOC: D.CT 08:59
PROVIDERS: ATTEND Family Medicine
DX: R10.9 Unspecified abdominal pain (principal)

== ENCOUNTER 2020-03-22 18:38 | Observation (INO) | payer MEDICAID ==
[~2020-03-22] VITALS: Ht 170.2 cm; Wt 141.5 kg
[2020-03-22 19:08] LABS: BASOPHILS 0.5 % (0-2); HEMATOCRIT 39.6 % (36.0-48.0); HEMOGLOBIN 13.3 g/dL (12-16); IMMATURE GRANULOCYTES 0.5 % (0-5); LYMPHOCYTES 29.5 % (15-50); MCH 29.8 pg (26.0-34.0); MCHC 33.6 g/dL (31.0-37.0); MCV 88.8 fL (80.0-100.0); MEAN PLATELET VOLUME 10.2 fL (7.4-10.4); MONOCYTES 8.7 % (2-11); NEUTROPHILS 55.8 % (40-80); PLATELET COUNT 227 10x3/uL (130-400); RBC 4.46 10x6/uL (4.00-5.40); RDW 12.6 % (11.5-14.5); WBC 8.8 10x3/uL (4.8-10.8)
[2020-03-22 19:20] LABS: APTT 24.1 SECONDS (22.8-39.4); INR 1.01 (0.85-1.17); PROTIME 13.2 SECONDS (11.6-15.0)
[2020-03-22 19:25] LABS: CALC OSMOLALITY 287 mosm/kg (275-300); CARBON DIOXIDE 27.2 mmol/L (21.0-32.0); CHLORIDE - SERUM 107 mmol/L (98-107); CREATININE - SERUM 1.3 mg/dL (0.6-1.3); GLUCOSE 127 mg/dL (74-106); POTASSIUM - SERUM 3.9 mmol/L (3.5-5.1); SODIUM 142 mmol/L (136-145); UREA NITROGEN 22 mg/dL (7-18); eGFR NON AFRICAN AMERICAN 44 mL/min (90-120)
--- NOTE | 2020-03-22 19:42 | NUR ---
CHEST PAIN 7/[address] NITRO ADMINISTERED WILL RECHECK IN 5 MINUTES
[2020-03-22 19:46] LABS: ALKALINE PHOSPHATASE 55 U/L (30-120); ALT (SGPT) 25 U/L (10-68); BILIRUBIN - TOTAL 0.25 mg/dL (0.2-1.3); CKMB 1.8 U/L (0.0-3.6); CREATINE KINASE 96 UL (21-215); MAGNESIUM - SERUM 2.1 mg/dL (1.8-2.4); PROTEIN - SERUM 6.4 g/dL (6.4-8.2); TROPONIN-I < 0.017 ng/mL (0.000-0.060)
[2020-03-22 19:47] VITALS: BP 136/56
--- NOTE | 2020-03-22 19:47 | NUR ---
LAST STENTS PLACED MARCH 2018
--- NOTE | 2020-03-22 19:48 | NUR ---
CHEST PAIN 7/10 SECOND NITRO ADMINISTERED AT THIS TIME.
[2020-03-22 21:25] VITALS: BP 152/60
--- NOTE | 2020-03-22 21:30 | NUR ---
RECEIVED TO FLOOR ACCOMPANIED BY ER STAFF. REPORTS PAIN TO RIGHT ARM 4/10. A&O X 4. AMBULATES WITH WALKER INDEPENDENTLY. VS STABLE ON ROOM AIR. AT BEDSIDE. CTM.
[2020-03-22 21:37] VITALS: BP 117/47
[2020-03-23 00:08] VITALS: BP 117/47
--- NOTE | 2020-03-23 03:00 | NUR ---
AID STATES PT WAS STANDBY ASSISTED TO RESTROOM AND IS REQUESTING NURSE. PT REPORTS SHE'S HAD SOB FOR THE PAST 15MINUTES. SPO2 IS 100% ON ROOM AIR, HR 62. AMBULATED WITH WALKER BACK TO BED. PT REPORTS HISTORY OF CHRISTOPHER AND STATES SHE USES CPAP AT HOME. ENCOURAGED TO HAVE BRING TO HOSPITAL IN THE AM. PT VERBALIZED UNDERSTANDING. SUGGESTED PT UTILIZE O2 VIA NASAL CANNULA AT 2L WHILE SLEEPING. INSTRUCTED TO REPORT IF ANOTHER SOB EPISODE OCCURS. CONTINUE PLAN OF CARE.
[2020-03-23 04:00] VITALS: BP 153/48
[2020-03-23 05:23] LABS: BASOPHILS 0.4 % (0-2); HEMATOCRIT 37.2 % (36.0-48.0); HEMOGLOBIN 12.2 g/dL (12-16); IMMATURE GRANULOCYTES 0.3 % (0-5); LYMPHOCYTES 38.4 % (15-50); MCH 29.7 pg (26.0-34.0); MCHC 32.8 g/dL (31.0-37.0); MCV 90.5 fL (80.0-100.0); MEAN PLATELET VOLUME 10.3 fL (7.4-10.4); MONOCYTES 12.5 % (2-11); NEUTROPHILS 43.4 % (40-80); PLATELET COUNT 203 10x3/uL (130-400); RBC 4.11 10x6/uL (4.00-5.40); RDW 12.7 % (11.5-14.5); WBC 6.8 10x3/uL (4.8-10.8)
[2020-03-23 05:49] LABS: ANION GAP 8.2 mmol/L (8-16); CALCIUM 8.9 mg/dL (8.5-10.1); CARBON DIOXIDE 29.7 mmol/L (21.0-32.0); CREATININE - SERUM 1.2 mg/dL (0.6-1.3); MAGNESIUM - SERUM 2.1 mg/dL (1.8-2.4); POTASSIUM - SERUM 3.9 mmol/L (3.5-5.1); TROPONIN-I 0.022 ng/mL (0.000-0.060)
--- NOTE | 2020-03-23 07:18 | NUR ---
I have reviewed this patient and I concur with the Shift Assessment completed by the Licensed Practical Nurse today this shift.
--- NOTE | 2020-03-23 07:38 | NUR ---
ALERT AND ORIENTED. LUNGS CLEAR BILATERALLY. HEART SOUNDS S1 AND S2 HEARD IN ALL VALLADARES. BOWEL SOUNDS ACTIVE X 4. IV TO RFA PATENT WITHOUT REDNESS. BED ALARM ON. CALL [place] AND PERSONAL ITEMS IN REACH. WILL CONTINUE TO MONITOR.
[2020-03-23 08:00] VITALS: BP 151/50
[2020-03-23 12:00] VITALS: BP 148/44
[2020-03-23 13:56] VITALS: Ht 170.2 cm; Wt 141.5 kg
[2020-03-23 16:00] VITALS: BP 134/54
[2020-03-23 20:30] VITALS: BP 116/48
[2020-03-24 00:14] VITALS: BP 165/50
--- NOTE | 2020-03-24 02:20 | NUR ---
I have reviewed this patient and I concur with the Shift Assessment completed by the Licensed Practical Nurse today this shift.
[2020-03-24 06:10] VITALS: BP 144/50
[2020-03-24 06:46] LABS: BASOPHILS 0.3 % (0-2); EOSINOPHILS 4.3 % (0-7); HEMATOCRIT 38.2 % (36.0-48.0); HEMOGLOBIN 12.5 g/dL (12-16); IMMATURE GRANULOCYTES 0.3 % (0-5); LYMPHOCYTES 34.5 % (15-50); MCH 29.7 pg (26.0-34.0); MCHC 32.7 g/dL (31.0-37.0); MCV 90.7 fL (80.0-100.0); MEAN PLATELET VOLUME 10.4 fL (7.4-10.4); MONOCYTES 11.3 % (2-11); NEUTROPHILS 49.3 % (40-80); PLATELET COUNT 202 10x3/uL (130-400); RBC 4.21 10x6/uL (4.00-5.40); RDW 12.8 % (11.5-14.5); WBC 6.5 10x3/uL (4.8-10.8)
[2020-03-24 06:50] LABS: ANION GAP 6.6 mmol/L (8-16); CALCIUM 8.7 mg/dL (8.5-10.1); CARBON DIOXIDE 30.6 mmol/L (21.0-32.0); CREATININE - SERUM 1.2 mg/dL (0.6-1.3); MAGNESIUM - SERUM 2.2 mg/dL (1.8-2.4); POTASSIUM - SERUM 4.2 mmol/L (3.5-5.1)
--- NOTE | 2020-03-24 07:23 | NUR ---
ALERT AND ORIENTED. LUNGS CLEAR BILATERALLY. HEART SOUNDS S1 AND S2 HEARD IN ALL VALLADARES. BOWEL SOUNDS ACTIVE X 4. SKIN INTACT WITHOUT REDNESS. IV TO RFA PATENT WITHOUT REDNESS. BED ALARM ON. CALL [place] AND PERSONAL ITEMS IN REACH. WILL CONTINUE TO MONITOR.
[2020-03-24 08:45] VITALS: BP 112/50
[2020-03-24 12:00] VITALS: BP 148/34
--- NOTE | 2020-03-24 13:01 | NUR ---
PATIENT SITTING IN BED. DENIES NEEDS. WILL CONTINUE TO MONITOR.
--- NOTE | 2020-03-24 16:24 | NUR ---
PATIENT'S AT DESK STATING "I NEED MY DISCHARGED. CALL DR MATHEW AND TELL HIM WE AREN'T STAYING OVERNIGHT AND WE WILL SEE DR PETERSON IN HIS OFFICE. IT IS RIDICULOUS FOR US TO HAVE TO STAY HERE FOR A CONSULT." DR PETERSON PAGED AND STATES PATIENT DOES NOT HAVE TO SAY ON ACCOUNT OF HIM. STATES THAT CAN SEE IN OFFICE. LIDA MISHRA PAGED.
--- NOTE | 2020-03-24 16:25 | NUR ---
WATER TREATMENT SPECIALIST TAD STATES WILL PLACE DISCHARGE ORDER.
--- NOTE | 2020-03-24 17:12 | NUR ---
IV REMOVED FROM RFA WITH TIP INTACT FOR DISCHARGE. TELEMETRY REMOVED AND RETURNED TO [place] AT MONITORS. WAITING DC PAPERWORK.
--- NOTE | 2020-03-24 17:42 | NUR ---
DISCHARGE EDUCATION PROVIDED BOTH WRITTEN AND VERBAL. VERBALIZED UNDERSTANDING. DENIES FURTHER QUESTIONS. PATIENT DC HOME WITH WITH ALL BELONGINGS.
== END 2020-03-24 17:45 | disposition home or self-care (01) ==
LOC: D.ER 18:38 → D.MS 19:49 → OBSVTIME 19:49 → D.MS 19:49
PROVIDERS: Family Medicine; ADMIT Family Medicine; ATTEND Family Medicine
DX: I25.110 Atherosclerotic heart disease of native coronary artery with unstable angina pectoris (principal); I10 Essential (primary) hypertension; E78.5 Hyperlipidemia, unspecified; G47.33 Obstructive sleep apnea (adult) (pediatric); M19.90 Unspecified osteoarthritis, unspecified site; F41.8 Other specified anxiety disorders